=== PATIENT | male | born 1980 | race Caucasian/White ===

== ENCOUNTER 2016-06-19 17:25 | Emergency (ER) | payer SELFPAY ==
[~2016-06-19] VITALS: Ht 175.3 cm; Wt 52.2 kg
[2016-06-19 17:26] VITALS: BP 103/69
== END 2016-06-19 18:37 | disposition home or self-care (01) ==
LOC: ED 18:31
DX: K02.9 Dental caries, unspecified (principal)
CPT/HCPCS: 70100